=== PATIENT | female | born 1955 | race Caucasian/White ===

== ENCOUNTER → 2016-06-01 | Outpatient (CLI) | payer OTHER ==
[~2016-06-01] MED LIST: CALCIUM 500 + D1 TA1 PO; FLAGYL500 MG PO; LAC PO; LEVAQUIN500 MG PO; LISINOPRIL AND1 TA2 PO; NORCO1 TA1 PO; ZOF4 PO
[2016-06-01 13:25] LABS: BASOPHIL % 0.4 % (0-2); PLATELET COUNT 239 x10^3mcL (130-400); RED CELL DISTRIBUTION WIDTH 13.4 % (11.5-14.5)
[2016-06-01 13:36] LABS: ALBUMIN 3.9 g/dL (3.4-5.0); ALKALINE PHOSPHATASE 76 U/L (46-116); ALT/SGPT 22 U/L (14-59); AST/SGOT 20 U/L (15-37); BILIRUBIN TOTAL 0.4 mg/dL (0.20-1.00); CALCIUM 9.3 mg/dL (8.5-10.1); CARBON DIOXIDE 28.5 mmol/L (21-32); CHLORIDE SERUM 103 mmol/L (98-107); CREATININE SERUM 0.8 mg/dL (0.6-1.0); GFR1 > 60 mL/min; GLUCOSE SERUM 98 mg/dL (74-106); POTASSIUM SERUM 3.6 mmol/L (3.5-5.1); SODIUM SERUM 140 mmol/L (136-145); TOTAL PROTEIN, SERUM 7.5 g/dL (6.4-8.2)
[2016-06-01 13:38] LABS: FREE T4 0.74 ng/dL (0.76-1.46); FREE THYROXINE INDEX 2.8 ug/dL (1.4-4.5); T4(THYROXINE) 8.2 ug/dL (4.7-13.3)
[2016-06-01 13:41] LABS: CHOLESTEROL 278 mg/dL (<200); HDL CHOLESTEROL 92 mg/dL (40-60); TRIGLYCERIDES 257 mg/dL (<150)
[2016-06-02 10:35] LABS: T3 TOTAL 1.3 ng/mL
== END | disposition home or self-care (01) ==
LOC: LB 12:45
PROVIDERS: Family Medicine
DX: R53.83 Other fatigue (principal)
CPT/HCPCS: 84439

== ENCOUNTER → 2016-06-17 | Outpatient (CLI) | payer OTHER | END | disposition home or self-care (01) | LOC: MI 09:43 | PROC: BP38ZZZ Magnetic Resonance Imaging (MRI) of Right Shoulder (ICD-10-PCS; principal; 2016-06-17) | DX: M25.511 Pain in right shoulder (principal) ==

== ENCOUNTER → 2016-07-13 | Outpatient (CLI) | payer OTHER | END | disposition home or self-care (01) | LOC: RD 15:39 | DX: M25.552 Pain in left hip (principal) ==

== ENCOUNTER 2016-08-08 10:47 | Inpatient (IN) | payer OTHER ==
[~2016-08-08] VITALS: Ht 152.4 cm; Wt 54.0 kg
[2016-08-08 11:28] LABS: PLATELET COUNT 316 x10^3mcL (130-400); RED CELL DISTRIBUTION WIDTH 13.1 % (11.5-14.5)
[2016-08-08 11:41] LABS: CALCIUM 9.4 mg/dL (8.5-10.1); CARBON DIOXIDE 22.7 mmol/L (21-32); POTASSIUM SERUM 3.9 mmol/L (3.5-5.1)
[2016-08-08 11:46] LABS: ALBUMIN 3.6 g/dL (3.4-5.0); BILIRUBIN TOTAL 0.7 mg/dL (0.20-1.00); TOTAL PROTEIN, SERUM 7.3 g/dL (6.4-8.2)
[2016-08-08 12:07] LABS: BAND NEUTROPHIL 2 % (0-10); BASOPHIL 0 % (0-2); MONOCYTE 5 % (0-7); SEGMENTED NEUTROPHILS 84 % (37-75)
[2016-08-08 12:19] LABS: UA SPECIFIC GRAVITY 1.025 (1.005-1.035); microscopic required? YES; urine erythrocyte 3+ (NEGATIVE)
[2016-08-08] MEDS ORDERED: DICLOFENAC SODI50 MG PO (15:34)
[2016-08-08 15:54] LABS: MAGNESIUM 1.6 mg/dL (1.8-2.4); PHOSPHOROUS 2.2 mg/dL (2.5-4.9)
[2016-08-08 15:55] LABS: CHOLESTEROL/HDL RATIO 2.6
[2016-08-08 16:02] LABS: FREE T4 1.21 ng/dL (0.76-1.46); FREE THYROXINE INDEX 3.2 ug/dL (1.4-4.5); T3 TOTAL 1.1 ng/mL; T4(THYROXINE) 9.2 ug/dL (4.7-13.3)
[2016-08-08 16:24] VITALS: BP 131/81
[2016-08-08 18:03] VITALS: BP 137/81
[2016-08-08 21:02] VITALS: BP 134/77
[2016-08-08 23:30] VITALS: BP 121/67
[2016-08-09 05:15] VITALS: BP 101/59
[2016-08-09 06:22] LABS: BASOPHIL % 0.3 % (0-2); PLATELET COUNT 241 x10^3mcL (130-400); RED CELL DISTRIBUTION WIDTH 13.3 % (11.5-14.5)
[2016-08-09 06:26] LABS: CALCIUM 7.9 mg/dL (8.5-10.1); CARBON DIOXIDE 26.9 mmol/L (21-32); CHLORIDE SERUM 105 mmol/L (98-107); CREATININE SERUM 0.8 mg/dL (0.6-1.0); GFR1 > 60 mL/min; GLUCOSE SERUM 124 mg/dL (74-106); MAGNESIUM 2.1 mg/dL (1.8-2.4); PHOSPHOROUS 2.5 mg/dL (2.5-4.9); POTASSIUM SERUM 3.5 mmol/L (3.5-5.1); SODIUM SERUM 139 mmol/L (136-145)
[2016-08-09 09:02] VITALS: BP 123/76
[2016-08-09 12:20] VITALS: BP 144/71
[2016-08-09 17:18] VITALS: BP 125/72
[2016-08-09 21:49] VITALS: BP 135/43
[2016-08-09 23:20] VITALS: BP 122/67
[2016-08-10 05:20] VITALS: BP 112/62
[2016-08-10 06:30] LABS: BASOPHIL % 0.7 % (0-2); PLATELET COUNT 235 x10^3mcL (130-400); RED CELL DISTRIBUTION WIDTH 13.3 % (11.5-14.5)
[2016-08-10 07:11] LABS: CALCIUM 7.9 mg/dL (8.5-10.1); CARBON DIOXIDE 27.8 mmol/L (21-32); CHLORIDE SERUM 107 mmol/L (98-107); CREATININE SERUM 0.7 mg/dL (0.6-1.0); GFR1 > 60 mL/min; GLUCOSE SERUM 111 mg/dL (74-106); MAGNESIUM 1.8 mg/dL (1.8-2.4); PHOSPHOROUS 3.2 mg/dL (2.5-4.9); POTASSIUM SERUM 3.6 mmol/L (3.5-5.1); SODIUM SERUM 140 mmol/L (136-145)
[2016-08-10 09:48] VITALS: BP 12/79; BP 128/79
[2016-08-10] MEDS ORDERED: COLACE100 MG PO (10:15)
[2016-08-10] MEDS ORDERED: LAC PO ×2 (10:27→10:47)
[2016-08-10] MEDS ORDERED: AUGMENTIN 875-1 EACH PO (10:32)
[2016-08-10] MEDS ORDERED: TYLENOL WITH CO1 TA2 PO (10:32)
[2016-08-10] MEDS ORDERED: ZOFRAN8 MG PO (11:06)
[2016-08-10 13:12] VITALS: BP 128/79
[2016-08-10] MEDS ORDERED: HCTZ/LISINOPRIL1 TA1 PO (13:37)
[2016-08-10 14:09] VITALS: BP 134/73
== END 2016-08-10 14:35 | disposition home or self-care (01) | DRG 391 ==
LOC: ED 10:47 → DU 15:08
PROVIDERS: Emergency Medicine; ADMIT Family Medicine
DX: K57.32 Diverticulitis of large intestine without perforation or abscess without bleeding (principal); N17.0 Acute kidney failure with tubular necrosis; E86.0 Dehydration; K76.89 Other specified diseases of liver; R31.9 Hematuria, unspecified; N83.202 Unspecified ovarian cyst, left side; E78.5 Hyperlipidemia, unspecified; Z68.23 Body mass index [BMI] 23.0-23.9, adult; I10 Essential (primary) hypertension; R73.03 Prediabetes; Z82.49 Family history of ischemic heart disease and other diseases of the circulatory system; Z87.891 Personal history of nicotine dependence
CPT/HCPCS: 83880; 84439; 87046; 87046-59; J0696; J1170; J1885; J1956; J2270; J2405; J3475; J3490; J7030; Q0092

== ENCOUNTER → 2016-09-29 | Outpatient (CLI) | payer OTHER ==
[~2016-09-29] MED LIST changes: +AUGMENTIN 875-1 EACH PO; +COLACE100 MG PO; +DICLOFENAC SODI50 MG PO; +HCTZ/LISINOPRIL1 TA1 PO; +TYLENOL WITH CO1 TA2 PO; +ZOFRAN8 MG PO
== END | disposition home or self-care (01) ==
LOC: CT 11:52
PROC: BQ2SZZZ Computerized Tomography (CT Scan) of Left Lower Extremity (ICD-10-PCS; principal; 2016-09-29)
PROC: BQ21ZZZ Computerized Tomography (CT Scan) of Left Hip (ICD-10-PCS; 2016-09-29)
DX: M79.605 Pain in left leg (principal)

== ENCOUNTER → 2016-12-08 | Outpatient (CLI) | payer OTHER | END | disposition home or self-care (01) | LOC: RD 10:20 | PROC: BH4CZZZ Ultrasonography of Head and Neck (ICD-10-PCS; principal; 2016-12-08) | DX: M89.9 Disorder of bone, unspecified (principal) ==

== ENCOUNTER 2017-04-02 11:10 | Emergency (ER) | payer OTHER ==
[~2017-04-02] VITALS: Ht 152.4 cm; Wt 51.2 kg
[2017-04-02 11:17] VITALS: Ht 152.4 cm; Wt 51.2 kg
[2017-04-02 12:07] LABS: BASOPHIL % 0.1 % (0-2); PLATELET COUNT 260 x10^3mcL (130-400); RED CELL DISTRIBUTION WIDTH 13.2 % (11.5-14.5)
[2017-04-02 12:16] LABS: CALCIUM 9.4 mg/dL (8.5-10.1); CARBON DIOXIDE 25.5 mmol/L (21-32); CREATININE SERUM 1.2 mg/dL (0.6-1.0); POTASSIUM SERUM 3.3 mmol/L (3.5-5.1)
[2017-04-02 12:21] LABS: ALBUMIN 3.9 g/dL (3.4-5.0); BILIRUBIN TOTAL 0.8 mg/dL (0.20-1.00); TOTAL PROTEIN, SERUM 7.9 g/dL (6.4-8.2)
[2017-04-02 16:00] VITALS: BP 110/60
== END 2017-04-02 16:00 | disposition home or self-care (01) ==
LOC: ED 11:10
PROVIDERS: Emergency Medicine
DX: K57.92 Diverticulitis of intestine, part unspecified, without perforation or abscess without bleeding (principal); I10 Essential (primary) hypertension; Z88.1 Allergy status to other antibiotic agents
CPT/HCPCS: J0696; J0780; J1170; J1885; J2405; J3010; J3490; J7030

== ENCOUNTER → 2017-05-06 | Outpatient (CLI) | payer OTHER | END | disposition home or self-care (01) | LOC: RD 11:11 | DX: M54.5 Low back pain (principal) ==

== ENCOUNTER → 2017-06-22 | Day surgery (SDC) | payer OTHER ==
[~2017-06-22] VITALS: Ht 152.4 cm; Wt 50.8 kg
[2017-06-22 06:23] VITALS: BP 135/81
[2017-06-22 10:49] VITALS: BP 119/68
== END | disposition home or self-care (01) ==
LOC: DS 06:14 → OR 07:30 → DS 07:30
PROVIDERS: Anesthesiology Pain Medicine
PROC: 3E0U33Z Introduction of Anti-inflammatory into Joints, Percutaneous Approach (ICD-10-PCS; 2017-06-22)
PROC: 3E0U3BZ Introduction of Anesthetic Agent into Joints, Percutaneous Approach (ICD-10-PCS; principal; 2017-06-22 07:30)
DX: M16.12 Unilateral primary osteoarthritis, left hip (principal); G89.29 Other chronic pain
CPT/HCPCS: 77003; J2001; J2250; J2704; J3301; J3490; J7040; Q0092

== ENCOUNTER 2017-08-12 11:19 | Emergency (ER) | payer OTHER ==
[~2017-08-12] VITALS: Ht 152.4 cm; Wt 51.2 kg
[2017-08-12 11:20] VITALS: Ht 152.4 cm; Wt 51.2 kg
[2017-08-12 12:18] VITALS: BP 137/76
== END 2017-08-12 12:18 | disposition home or self-care (01) ==
LOC: ED 11:19
DX: M16.12 Unilateral primary osteoarthritis, left hip (principal); M54.16 Radiculopathy, lumbar region; I10 Essential (primary) hypertension
CPT/HCPCS: J1885

== ENCOUNTER 2017-09-16 12:40 | Emergency (ER) | payer OTHER ==
[~2017-09-16] VITALS: Ht 152.4 cm; Wt 52.6 kg
[2017-09-16 12:41] VITALS: Ht 152.4 cm; Wt 52.6 kg
[2017-09-16 13:29] VITALS: BP 132/75
== END 2017-09-16 13:31 | disposition home or self-care (01) ==
LOC: ED 12:40
DX: M54.32 Sciatica, left side (principal); I10 Essential (primary) hypertension; Z87.19 Personal history of other diseases of the digestive system
CPT/HCPCS: J1885

== ENCOUNTER → 2017-09-20 | Outpatient (CLI) | payer OTHER | END | disposition home or self-care (01) | LOC: MI 10:12 | PROC: BR39ZZZ Magnetic Resonance Imaging (MRI) of Lumbar Spine (ICD-10-PCS; principal; 2017-09-20) | DX: M62.830 Muscle spasm of back (principal); M79.605 Pain in left leg ==

== ENCOUNTER 2018-03-13 11:55 | Emergency (ER) | payer OTHER ==
[~2018-03-13] VITALS: Ht 152.4 cm; Wt 49.9 kg
[2018-03-13 12:06] VITALS: BP 118/92; Ht 152.4 cm; Wt 49.9 kg
== END 2018-03-13 12:42 | disposition home or self-care (01) ==
LOC: ED 11:55
DX: M16.12 Unilateral primary osteoarthritis, left hip (principal); M54.42 Lumbago with sciatica, left side; Z88.8 Allergy status to other drugs, medicaments and biological substances; Z98.890 Other specified postprocedural states; Z88.1 Allergy status to other antibiotic agents
CPT/HCPCS: J1885

== ENCOUNTER 2018-03-18 09:34 | Emergency (ER) | payer OTHER ==
[~2018-03-18] VITALS: Ht 152.4 cm; Wt 49.9 kg
[2018-03-18 09:41] VITALS: Ht 152.4 cm; Wt 49.9 kg
[2018-03-18 10:08] LABS: CALCIUM 9.9 mg/dL (8.5-10.1); CARBON DIOXIDE 28.4 mmol/L (21-32); CREATININE SERUM 1.1 mg/dL (0.6-1.0); POTASSIUM SERUM 3.7 mmol/L (3.5-5.1)
[2018-03-18 10:12] LABS: ALBUMIN 3.8 g/dL (3.4-5.0); BILIRUBIN TOTAL 0.58 mg/dL (0.20-1.00); TOTAL PROTEIN, SERUM 8.1 g/dL (6.4-8.2)
[2018-03-18 10:28] LABS: BASOPHIL % 0.5 % (0-2); PLATELET COUNT 338 x10^3mcL (130-400)
[2018-03-18 10:57] LABS: RED CELL DISTRIBUTION WIDTH 15.2 % (11.5-14.5)
[2018-03-18 14:56] VITALS: BP 112/65
== END 2018-03-18 14:56 | disposition home or self-care (01) ==
LOC: ED 09:34
PROVIDERS: Emergency Medicine
DX: K29.00 Acute gastritis without bleeding (principal); I10 Essential (primary) hypertension; M54.30 Sciatica, unspecified side; M16.12 Unilateral primary osteoarthritis, left hip; Z88.1 Allergy status to other antibiotic agents; Z88.8 Allergy status to other drugs, medicaments and biological substances; Z98.890 Other specified postprocedural states
CPT/HCPCS: J2060; J2270; J2405; J3490; J7030

== ENCOUNTER → 2018-04-18 | Outpatient (CLI) | payer OTHER | END | disposition home or self-care (01) | LOC: RD 14:13 | DX: M25.552 Pain in left hip (principal) ==

== ENCOUNTER 2018-05-03 05:51 | Day surgery (SDC) | payer OTHER | END 2018-05-03 09:30 | LOC: DS 05:51 → OR 07:30 → DS 09:30 ==

== ENCOUNTER 2018-05-05 13:15 | Emergency (ER) | payer OTHER ==
[~2018-05-05] VITALS: Ht 152.4 cm; Wt 49.9 kg
[2018-05-05 13:21] VITALS: Ht 152.4 cm; Wt 49.9 kg
[2018-05-05 14:44] LABS: BASOPHIL % 0.2 % (0-2); PLATELET COUNT 352 x10^3mcL (130-400)
[2018-05-05 14:59] LABS: CALCIUM 8.7 mg/dL (8.5-10.1); CARBON DIOXIDE 29.6 mmol/L (21-32); POTASSIUM SERUM 3.5 mmol/L (3.5-5.1)
[2018-05-05 15:03] LABS: BILIRUBIN TOTAL 0.31 mg/dL (0.20-1.00); TOTAL PROTEIN, SERUM 7.5 g/dL (6.4-8.2)
[2018-05-05 15:07] LABS: ALBUMIN 3.1 g/dL (3.4-5.0)
[2018-05-05 17:24] LABS: microscopic required? YES; urine erythrocyte 2+ (NEGATIVE)
[2018-05-05 18:35] VITALS: BP 123/95
== END 2018-05-05 18:35 | disposition home or self-care (01) ==
LOC: ED 13:15
PROVIDERS: Emergency Medicine
DX: K57.32 Diverticulitis of large intestine without perforation or abscess without bleeding (principal); R94.31 Abnormal electrocardiogram [ECG] [EKG]; R11.0 Nausea; M54.16 Radiculopathy, lumbar region; M19.90 Unspecified osteoarthritis, unspecified site; Z98.890 Other specified postprocedural states; Z98.86 Personal history of breast implant removal; Z88.1 Allergy status to other antibiotic agents
CPT/HCPCS: J1885; J2060; J2405; J2765; J3010; J3490; J7030; Q9967

== ENCOUNTER 2018-05-09 12:57 | Emergency (ER) | payer OTHER ==
[~2018-05-09] VITALS: Ht 152.4 cm; Wt 49.9 kg
[2018-05-09 12:59] VITALS: Ht 152.4 cm; Wt 49.9 kg
[2018-05-09 14:16] LABS: BASOPHIL % 0.2 % (0-2)
[2018-05-09 15:40] LABS: UA SPECIFIC GRAVITY <=1.005 (1.005-1.035)
[2018-05-09 15:41] LABS: microscopic required? YES; urine erythrocyte 2+ (NEGATIVE)
[2018-05-09 15:44] LABS: CALCIUM 8.6 mg/dL (8.5-10.1); CARBON DIOXIDE 29.2 mmol/L (21-32); CREATININE SERUM 1.5 mg/dL (0.6-1.0); POTASSIUM SERUM 3.9 mmol/L (3.5-5.1)
[2018-05-09 15:52] LABS: ALBUMIN 3.3 g/dL (3.4-5.0); BILIRUBIN TOTAL 0.42 mg/dL (0.20-1.00); CHOLESTEROL/HDL RATIO 3.9; TOTAL PROTEIN, SERUM 7.4 g/dL (6.4-8.2)
[2018-05-09 15:58] LABS: FREE T4 1.09 ng/dL (0.76-1.46); FREE THYROXINE INDEX 3.5 ug/dL (1.4-4.5); T4(THYROXINE) 9.2 ug/dL (4.7-13.3)
[2018-05-09 16:09] LABS: T3 TOTAL 0.9 ng/mL
[2018-05-09 17:01] LABS: PLATELET COUNT 374 x10^3mcL (130-400)
[2018-05-09 18:08] VITALS: BP 145/79
== END 2018-05-09 18:08 | disposition home or self-care (01) ==
LOC: ED 12:57
PROVIDERS: Specialist
DX: E86.0 Dehydration (principal); R53.1 Weakness; Z98.890 Other specified postprocedural states; Z98.82 Breast implant status; I10 Essential (primary) hypertension; Z88.1 Allergy status to other antibiotic agents; Z88.8 Allergy status to other drugs, medicaments and biological substances
CPT/HCPCS: 84439; J2405; J3490; J7030

== ENCOUNTER → 2018-05-23 | Outpatient (CLI) | payer OTHER ==
[2018-05-23 11:36] LABS: UA SPECIFIC GRAVITY 1.025 (1.005-1.035); microscopic required? YES; urine erythrocyte 3+ (NEGATIVE)
[2018-05-23 11:48] LABS: BASOPHIL % 0.4 % (0-2); PLATELET COUNT 257 x10^3mcL (130-400); RED CELL DISTRIBUTION WIDTH 13.1 % (11.5-14.5)
[2018-05-23 11:55] LABS: ALBUMIN 3.4 g/dL (3.4-5.0); ALKALINE PHOSPHATASE 86 U/L (46-116); ALT/SGPT 25 U/L (14-59); AST/SGOT 21 U/L (15-37); BILIRUBIN TOTAL 0.28 mg/dL (0.20-1.00); CALCIUM 8.9 mg/dL (8.5-10.1); CARBON DIOXIDE 27.1 mmol/L (21-32); CHLORIDE SERUM 104 mmol/L (98-107); CHOLESTEROL 200 mg/dL (<200); CREATININE SERUM 0.8 mg/dL (0.6-1.0); FREE T4 0.88 ng/dL (0.76-1.46); GFR1 > 60 mL/min; GLUCOSE SERUM 111 mg/dL (74-106); MAGNESIUM 1.9 mg/dL (1.8-2.4); POTASSIUM SERUM 3.7 mmol/L (3.5-5.1); SODIUM SERUM 139 mmol/L (136-145)
[2018-05-23 11:56] LABS: CHOLESTEROL/HDL RATIO 2.7; HDL CHOLESTEROL 75 mg/dL (40-60); TRIGLYCERIDES 226 mg/dL (<150)
== END | disposition home or self-care (01) ==
LOC: LB 11:15
PROVIDERS: Family Medicine
DX: R63.0 Anorexia (principal)
CPT/HCPCS: 84439

== ENCOUNTER → 2018-05-31 | Day surgery (SDC) | payer OTHER ==
[2018-05-30 13:19] LABS: BASOPHIL % 0.3 % (0-2); PLATELET COUNT 209 x10^3mcL (130-400)
[2018-05-30 13:59] LABS: CALCIUM 9.1 mg/dL (8.5-10.1); CARBON DIOXIDE 26.7 mmol/L (21-32); CHLORIDE SERUM 103 mmol/L (98-107); CREATININE SERUM 0.7 mg/dL (0.6-1.0); GFR1 > 60 mL/min; GLUCOSE SERUM 118 mg/dL (74-106); POTASSIUM SERUM 3.3 mmol/L (3.5-5.1); SODIUM SERUM 141 mmol/L (136-145)
[~2018-05-31] VITALS: Ht 152.4 cm; Wt 50.8 kg
[2018-05-31 06:24] VITALS: BP 122/78
[2018-05-31 11:15] VITALS: BP 128/78
== END | disposition home or self-care (01) ==
LOC: DS 06:00 → OR 07:30
PROVIDERS: Anesthesiology Pain Medicine
PROC: 3E0U3BZ Introduction of Anesthetic Agent into Joints, Percutaneous Approach (ICD-10-PCS; 2018-05-31)
PROC: 3E0U33Z Introduction of Anti-inflammatory into Joints, Percutaneous Approach (ICD-10-PCS; principal; 2018-05-31 07:30)
DX: M46.1 Sacroiliitis, not elsewhere classified (principal); M51.17 Intervertebral disc disorders with radiculopathy, lumbosacral region; G89.4 Chronic pain syndrome; M16.12 Unilateral primary osteoarthritis, left hip; I10 Essential (primary) hypertension; Z68.21 Body mass index [BMI] 21.0-21.9, adult
CPT/HCPCS: 77003; J2001; J2250; J2405; J2704; J3010; J3490; J7040; Q9967

== ENCOUNTER → 2018-07-06 | Outpatient (CLI) | payer OTHER ==
[2018-07-06 11:17] LABS: ALBUMIN 3.4 g/dL (3.4-5.0); ALKALINE PHOSPHATASE 92 U/L (46-116); ALT/SGPT 17 U/L (14-59); AST/SGOT 15 U/L (15-37); CALCIUM 9.6 mg/dL (8.5-10.1); CHLORIDE SERUM 105 mmol/L (98-107); CREATININE SERUM 0.7 mg/dL (0.6-1.0); GFR1 > 60 mL/min; GLUCOSE SERUM 111 mg/dL (74-106); POTASSIUM SERUM 3.8 mmol/L (3.5-5.1); SODIUM SERUM 141 mmol/L (136-145); TOTAL PROTEIN, SERUM 7.2 g/dL (6.4-8.2)
[2018-07-06 11:20] LABS: BASOPHIL % 0.6 % (0-2); PLATELET COUNT 270 x10^3mcL (130-400)
[2018-07-06 11:34] LABS: RED CELL DISTRIBUTION WIDTH 15.3 % (11.5-14.5)
[2018-07-06 14:06] LABS: UA SPECIFIC GRAVITY 1.015 (1.005-1.035); microscopic required? YES; urine erythrocyte 2+ (NEGATIVE)
== END | disposition home or self-care (01) ==
LOC: RD 09:49
DX: Z01.818 Encounter for other preprocedural examination (principal)

== ENCOUNTER 2018-08-08 10:46 | Inpatient (IN) | payer OTHER ==
[~2018-08-08] VITALS: Ht 157.5 cm; Wt 49.9 kg
[2018-08-08 12:53] LABS: ALBUMIN 3.9 g/dL (3.4-5.0); ALKALINE PHOSPHATASE 93 U/L (46-116); ALT/SGPT 19 U/L (14-59); AST/SGOT 14 U/L (15-37); BILIRUBIN TOTAL 0.45 mg/dL (0.20-1.00); CALCIUM 9.6 mg/dL (8.5-10.1); CARBON DIOXIDE 29.1 mmol/L (21-32); CHLORIDE SERUM 101 mmol/L (98-107); CREATININE SERUM 0.8 mg/dL (0.6-1.0); GFR1 > 60 mL/min; GLUCOSE SERUM 102 mg/dL (74-106); POTASSIUM SERUM 3.5 mmol/L (3.5-5.1); SODIUM SERUM 136 mmol/L (136-145); TOTAL PROTEIN, SERUM 7.9 g/dL (6.4-8.2)
[2018-08-08 13:11] LABS: BASOPHIL % 0.3 % (0-2); PLATELET COUNT 248 x10^3mcL (130-400)
[2018-08-08 13:11] LABS: microscopic required? YES; urine erythrocyte 3+ (NEGATIVE)
[2018-08-08 13:12] LABS: RED CELL DISTRIBUTION WIDTH 15.1 % (11.5-14.5)
[2018-08-21 12:14] LABS: ALBUMIN 3.8 g/dL (3.4-5.0); ALKALINE PHOSPHATASE 89 U/L (46-116); ALT/SGPT 26 U/L (14-59); AST/SGOT 18 U/L (15-37); BILIRUBIN TOTAL 0.3 mg/dL (0.20-1.00); CALCIUM 9.4 mg/dL (8.5-10.1); CARBON DIOXIDE 31.3 mmol/L (21-32); CHLORIDE SERUM 102 mmol/L (98-107); CREATININE SERUM 0.8 mg/dL (0.6-1.0); GFR1 > 60 mL/min; GLUCOSE SERUM 105 mg/dL (74-106); POTASSIUM SERUM 3.7 mmol/L (3.5-5.1); SODIUM SERUM 139 mmol/L (136-145); TOTAL PROTEIN, SERUM 7.6 g/dL (6.4-8.2)
[2018-08-21 12:36] LABS: BASOPHIL % 0.3 % (0-2); PLATELET COUNT 277 x10^3mcL (130-400)
[2018-08-21 12:37] LABS: RED CELL DISTRIBUTION WIDTH 14.6 % (11.5-14.5)
--- NOTE | 2018-08-21 14:30 | NUR ---
PRINTED LAB RESULTS FOR SURGERY 08-22-18. NOTED PT WAS SEEN IN ER 08-16-18 FOR INJURY LEFT THIRD FINGER. XRAY REPORTS "NO ACUTE FRACTURES ARE DEMONSTRATED. THERE DOES APPEAR TO BE MILD HYPEREXTENSION NOTED AT THE PROXIMAL INTERPHALANGEAL JOINT". ER DR LUNSFORD TO ALERT ORTHO SURGEON TO SEE IF THIS MIGHT IMPACT HER SURGERY ON 08-22-18. CALL TO PT. STATES "TOOK SPLINT OFF AND WILL FOLLOWUP WITH PCP IF HAS ANY PROBLEMS." YAZAN IN OR NOTIFIED REGARDING PT STATUS AND TO ALERT DR MAN OF INJURY.
--- NOTE | 2018-08-21 15:12 | NUR ---
YAZAN REPORTED PT ER VISIT AND FINDINGS TO DR MAN. TO PROBLEM WITH UPCOMING SURGERY. PT NOTIFIED.
[2018-08-22 06:32] VITALS: BP 127/82
[2018-08-22 06:42] VITALS: BP 127/82
[2018-08-22] MEDS ORDERED: HCTZ/LISINOPRIL1 TA1 PO (07:39)
[2018-08-22] MEDS ORDERED: ATIVAN1 MG PO (07:40)
[2018-08-22] MEDS ORDERED: TYLENOL WITH CO1 TA3 PO (07:40)
[2018-08-22 13:35] VITALS: BP 118/55
--- NOTE | 2018-08-22 13:38 | NUR ---
RECEIVED PT FROM OR VIA [facility]. ORIENTED PT TO ROOM AND SURROUNDINGS. IV NOTED TO RFA PATENT AND INTACT. ENDORSED PT TO PRIMARY NURSE KAYDEN
--- NOTE | 2018-08-22 15:48 | NUR ---
PT OOB WITH PHYSICAL THERAPY, ASSISTED TO BSC, TOLERATED ACTIVITY WELL. VOID X1. PT COMPLAINT OF PAIN TO LLE, RATES 9/10, WORSE WITH MOVEMENT. GIVEN IV PAIN MED, SEE MAR. PT NOW SITTING IN CHAIR AT BEDSIDE, PT TALKING TO PATIENT ABOUT HIP PRECAUTIONS, PT AND FAMILY QUESTIONS CONCERNED DISCUSSED. NO SOB ON ROOM AT THIS TIME. IV WNL TO RFA, NO REDNESS, NO SWELLING, NO INFILTRATION. PATENT AND FLUSHES WELL. WILL CONTINUE TO MONITOR.
[2018-08-22 16:36] VITALS: BP 105/53
--- NOTE | 2018-08-22 18:00 | NUR ---
ASSISTED PT TO BSC, LEFT HIP PRECAUTIONS IN PLACE, TOLERATED ACTIVITY WELL. VOID X1, URINE CLEAR/YELLOW. NO S/S OF ACUTE DISTRESS. NO SOB ON ROOM AIR. NO CHEST PAIN. DRESSING TO LLE CDI. IV WNL TO RFA, NO REDNESS, NO SWELLING, NO INFILTRATION. PATENT AND FLUSHES WELL. IV FLUIDS FLOWING. BED IN LOW POSITION. CALL LIGHT WITHIN REACH. FALL PRECAUTIONS IN PLACE. WILL CONTINUE TO MONITOR.
--- NOTE | 2018-08-22 19:39 | NUR ---
RECEIVED PT FROM PREVIOUS SHIFT. PT A/OX4. DENIES SOB ON RA. IV TO RFA BLEEDING/LEAKING. INFUSION HELD. FAMILY AT BEDSIDE. DRESSING TO L HIP CDI. CALL LIGHT WITHIN REACH, BED IN LOW POSITION. WILL CONTINUE TO MONITOR.
--- NOTE | 2018-08-22 21:21 | NUR ---
ATIVAN GIVEN IVP PER EMAR. IV PATENT, FLUSHING WELL. WILL CONTINUE TO MONITOR.
[2018-08-22 21:40] VITALS: BP 123/69
--- NOTE | 2018-08-22 22:21 | NUR ---
NEW IV PLACED TO JESSICA. DILAUDID GIVEN IVP PER EMAR. PT IS TEARFUL, C/O ANXIETY. STATES SHE TAKES ATIVAN AT HOME PRN FOR ANXIETY. DR MAN PAGED AT THIS TIME. WILL CONTINUE TO MONITOR.
--- NOTE | 2018-08-22 23:31 | NUR ---
PT ASSISTED TO BEDSIDE COMMODE AND BACK TO BED. ABDUCTOR PILLOW IN PLACE. PT C/O PAIN TO L HIP 11/23. DILAUDID GIVEN IVP. BP 123/65. IV PATENT AND INFUSING WELL. PT MADE COMFORTABLE. CALL LIGHT WITHIN REACH, BED IN LOW POSITION. WILL CONTINUE TO MONITOR.
--- NOTE | 2018-08-23 01:19 | NUR ---
PT RESTING IN NO ACUTE DISTRESS. RR EVEN AND UNLABORED. CALL LIGHT WITHIN REACH, BED IN LOW POSITION. WILL CONTINUE TO MONITOR.
[2018-08-23 05:56] VITALS: BP 129/57
[2018-08-23 07:00] LABS: CALCIUM 8.2 mg/dL (8.5-10.1); CARBON DIOXIDE 30.4 mmol/L (21-32); CHLORIDE SERUM 102 mmol/L (98-107); CREATININE SERUM 0.8 mg/dL (0.6-1.0); GFR1 > 60 mL/min; GLUCOSE SERUM 126 mg/dL (74-106); POTASSIUM SERUM 3.6 mmol/L (3.5-5.1); SODIUM SERUM 139 mmol/L (136-145)
[2018-08-23 07:26] LABS: BASOPHIL % 0.3 % (0-2); PLATELET COUNT 204 x10^3mcL (130-400); RED CELL DISTRIBUTION WIDTH 14.4 % (11.5-14.5)
--- NOTE | 2018-08-23 07:30 | NUR ---
RC'D PT RESTING IN BED C/O OF LEFT HIP PAIN. PT MEDICATION NOTED DUE AT THIS TIME, WILL MEDICATE PER EMAR. A/A/O/X4, SPEECH CLEAR AND APPROPRIATE. DENIES MARTINEZ/DIZZINESS. MEDSURG. DENIES CHEST PAIN/PRESSURE. PALP PULSES, NO EDEMA NOTED. RESPIRATIONS EQUAL AND UNLABROED. LUNGS CTA. ON RA, DENIES SOB. ABDOMEN SOFT AND NONTEDNER. ACTIVE BS. DENIES N/V AT THIS TIME. VOIDS FREELY, DENIES BURNING. LIMITED ROM TO LEFT HIP, DRESSING IN PLACE CDI. PT AMBULATES WITH ASSISTANCE. PT ABLE TO REPOSITION SELF IN BED. ECCYMOSIS NOTED TO RFA, PICK REMOVER. IV PATENT AND INTACT. BED IN LOW POSITION. CALL LIGHT IN REACH. WILL CONTINUE TO MONITOR
--- NOTE | 2018-08-23 08:12 | NUR ---
AM MEDICATIONS GIVEN. PT TOLERATED WELL. PT C/O OF PAIN 10/10 TO LEFT HIP, MEDICATED PER EMAR. RESPIRATIONS EQUAL AND UNLABORED. ON RA, DENIES SOB. DR. MAN AT BEDSIDE DISCUSSING POC WITH PT. PT VERBALIZED UNDERSTANDNING. BED IN LOW POSITION. CALL LIGHT IN REACH. WILL CONTINUE TO MONITOR
[2018-08-23 08:37] VITALS: BP 131/49
--- NOTE | 2018-08-23 12:30 | NUR ---
STILL C/O OF LT LEG PAIN AND INSPITE DILAUDID 1MG IV WAS GIVEN. CALLED TO AND MADE AWARE AND HE CHANGE THE FREQUENCY OF DILAUDID TO Q3HRS FROM Q4HRS AND ADDED PERCOCET 5/325 2TABS.Q6HRS.
[2018-08-23 12:44] VITALS: BP 112/58
--- NOTE | 2018-08-23 13:00 | NUR ---
REPORT GIVEN TO GABBI ALONZO FOR CONTINUED CARE.
--- NOTE | 2018-08-23 13:15 | NUR ---
RECEIVED PATIENT FOR CONTINUE CARE. PATIENT A/A/OX4; CLEAR SPEECH. NO RESP DISTRESS ON RA. IVF OF NS 80CC/HR. IV SITE TO RUE INTACT. NO S/S OF INFILTRATION. LT HIP INCISION COCRED WITH SURGICAL DRSG, DRY/INTACT. ABLE TO USE BSC W/ ASSIST. C/O L HIP PAIN ON 11/23 WHEN ON MOVEMENT. DILAUDID 1MG IVP GIVEN AT 1151 AND PERCOCET 10/325 PO GIVEN AR 1243. CONTINUE MONITOR. CALL LIGT IN REACH.
--- NOTE | 2018-08-23 15:40 | NUR ---
PATIENT WALKED WITH PHYSICAL THERAPIST. HAD SHORT TERM OF NAP. C/O L HIP INCISIONAL PAIN ON 08/23; DILAUDID 1MG IVP GIVEN. CONTINUE MONITOR.
[2018-08-23 16:54] VITALS: BP 96/45
--- NOTE | 2018-08-23 18:25 | NUR ---
L HIP INCISIONAL PAIN 7/10; PERCOCET 10/325 PO GIVEN. PATIENT C/O ANXIETY. ATIVAN 1MG PO GIVEN. HAD VOID X4 VIA BSC OR BRP W/ ASSISTANCE. NO BM THIS SHIFT. PILLOW BETWEEN LEGS. IVF OF NS 80CC/HR. ENDORSED CARE TO NOC NURSE.
--- NOTE | 2018-08-23 19:10 | NUR ---
RECIEVED PATIENT AT START OF SHIFT ASLEEP, SNORING, EYES CLOSED, BREATHS EVEN. IV INFUSING WITHOUT ERYTHEMA OR INFILTRATION TO JESSICA. PILLOW IN PLACE BETWEEN PATIENTS LEGS. HOB AT 30 DEGREES. SCDS AT BEDSIDE. BED LOCKED AND IN LOWEST POSIITON. CALL LIGHT AND BEDSIDE TABLE WITHIN REACH.
--- NOTE | 2018-08-23 20:00 | NUR ---
PATIENT IS AWAKE AND WAS ASSISTED TO USE BEDSIDE COMMODE. HIP REPLACEMENT PRECAUTIONS MAINTAINED. PATIENT BACK IN BED WITH ABDUCTOR PILLOW IN PLACE BETWEEN LEGS. PATIENT REPORTING 10/10 PAIN. WILL MEDICATE PER EMAR.
--- NOTE | 2018-08-23 20:30 | NUR ---
PATIENT GIVEN DILAUDID PER EMAR FOR 10/10 PAIN. PATIENT REFUSED CELEBREX BECAUSE SHE SAID IT UPSETS HER STOMACH.
[2018-08-23 21:16] VITALS: BP 109/50
--- NOTE | 2018-08-23 23:45 | NUR ---
PATIENT GIVEN DIALUDID PER EMAR FOR 8/10 PAIN TO HER LEFT HIP. BP WNL.
--- NOTE | 2018-08-24 03:50 | NUR ---
PATIENT GIVEN DILAUDID PER EMAR FOR 8/10 PAIN TO LEFT HIP.
--- NOTE | 2018-08-24 06:10 | NUR ---
PATIENT GIVEN ATIVAN PER EMAR DUE TO ANXIETY THIS MORNING RELATED TO PAIN. PAIN MEDICATION DUE 0650. WILL MEDICATE WHEN DUE.
[2018-08-24 06:36] VITALS: BP 105/53
--- NOTE | 2018-08-24 06:53 | NUR ---
PATIENT GIVEN DILAUDID PER EMAR FOR REPORT OF 10/10 PAIN TO LEFT HIP. IV INFUSING WITH OUT ERYTHEMA OR INFILTRATION. HIP PRECAUTIONS MAINTAINED THROUGH OUT SHIFT. BED LOCKED AND IN LOWEST POSIITON. CALL LIGHT AND BEDSDIE TABLE WITHIN REACH. WILL ENDORSE CARE TO [facility] NURSE.
[2018-08-24 07:06] LABS: BASOPHIL % 0.3 % (0-2); PLATELET COUNT 189 x10^3mcL (130-400); RED CELL DISTRIBUTION WIDTH 14.4 % (11.5-14.5)
--- NOTE | 2018-08-24 07:10 | NUR ---
RECEIVED PT IN BED, AXOX3, CONFUSED AT TIMES, VERBALY, YI, ABLE TO MAKE NEEDS KNOWN, ANXIETY, PERRLA, NO REDNESS/DRAINAGE, RESP EVEN AND NON-LABORED, IN NO ACUTE RESP DISTRESS, CHEST RISE SYMMETRICALLY, ABD FLAT AND NON-TENDERED TO TOUCH, BS (+) X 4, AMBULATORY WITH ASSIST AND FWW, CONTINENT, (L) HIP REPLACEMENT, DRESSING C/D/I, NO FACIAL DROOP/SLURRED SPEECH AT THIS TIME, DENIEDD N/V/D, REPORT PAIN 09/23 TO SURGICAL SITE, MED GIVEN PRN PER MD ORDER VIA EMAR, TAKEN WELL, AMBULATE WITH PT, TAKEN WELL, PALP PULSES, CAP REFILL < 2 SEC, SKIN D/W/C, ALL NEEDS MET AT THIS TIME, SAFETY PRECAUTION FOLLOWED, CONTINUE TO MONITOR
[2018-08-24 07:30] LABS: CALCIUM 8.6 mg/dL (8.5-10.1); CARBON DIOXIDE 28.5 mmol/L (21-32); CHLORIDE SERUM 105 mmol/L (98-107); CREATININE SERUM 0.6 mg/dL (0.6-1.0); GFR1 > 60 mL/min; GLUCOSE SERUM 105 mg/dL (74-106); POTASSIUM SERUM 3.5 mmol/L (3.5-5.1); SODIUM SERUM 140 mmol/L (136-145)
--- NOTE | 2018-08-24 07:45 | NUR ---
PT BACK TO BED AFTER PT THERAPY , REPORT PAIN 5/10, TOLERABLE AT THIS TIME, DAUGHTER AT BEDSIDE, SAFETY PRECAUTION FOLLOWED, CONTINUE TO MONITOR
[2018-08-24 08:31] VITALS: BP 121/48
--- NOTE | 2018-08-24 09:00 | NUR ---
TALKED TO PT'S DAUGHTER URBAN.EXPRESSES CONCERN ON PT HAVING TOO MUCH PAIN MEDICATION.DOES NOT WANT US TO GIVE DILAUDID IF POSSIBLE.WILL LET THE DOCTOR KNOW.
--- NOTE | 2018-08-24 09:54 | NUR ---
PT REPORTED PAIN TO (L) SURGICAL SITE, 09/23, PAIN MED GIVEN PER MD PRN ORDER VIA EMAR, TAKEN WELL, NO ASE NOTED, FAMILY AT BEDSIDE, ALL NEEDS MET, CONTINUE TO MONITOR
--- NOTE | 2018-08-24 10:42 | NUR ---
PT RESTING IN BED, IN NO ACUTE RESP DISTRESS, PAIN REASSESS, 05/24, TOLERABLE, ALL NEEDS MET, CONTINUE TO MONITOR
--- NOTE | 2018-08-24 11:22 | NUR ---
I HAVE REVIEWED THE DATA COLLECTION BY CHERI LEON (NAME):AMBER HENLEY ENTERED ON (DATE/TIME):08/24/18 @ 1122 I CONCUR WITH THE DATA AND ANY EXCEPTIONS OR COMMENTS ARE LISTED BELOW:
--- NOTE | 2018-08-24 13:23 | NUR ---
PT ASSITED TO RESTROOM, VOID X 1, ASSITED BACK TO BED, REPORTED PAIN TO (L) SITE 09/23, PAIN MED GIVEN PER MD ORDER PRN VIA EMAR, TAKEN WELL, SEEN BY PT, ALL NEEDS MET AT THIS TIME, SAFETY PROTOCOL FOLLOWED, CONTINUE TO MONITOR
--- NOTE | 2018-08-24 15:13 | NUR ---
PT RESTING IN BED, REPORTED PAIN 8/10 AT (L) SURGICAL SITE, MED GIVEN PER MD ORDER FOR PRN VIA EMAR, TAKEN WELL, NO ASE NOTED AT THIS TIME, SAFETY PRECAUTION FOLLOW, CONTINUE TO MONITOR
--- NOTE | 2018-08-24 15:46 | NUR ---
IV TO (R) AC INFILTRATION, IV REMOVED, IV CATH TIP INTACT, INSERTED IV TO LEFT FA, PATENT AND INFUSING WELL, PT IN NO ACUTE DISTRESS, ALL NEEDS AT THIS TIME, CONTINUE TO MONITOR
--- NOTE | 2018-08-24 17:15 | NUR ---
PT SEEN BY DR. MAN, DISCUSS ABOUT D/C HOME PLAN, IN NO ACUTE DISTRESS, CONTINUE TO MONITOR
[2018-08-24 17:21] VITALS: BP 115/40
--- NOTE | 2018-08-24 18:10 | NUR ---
CALLED LEFT A MESSAGE ABOUT PT'S DAUGHTER WANTED TO TALK TO HER.LEFT PT'S DAUGHTER'S PHONE NUMBER FOR TO CALL HE.
--- NOTE | 2018-08-24 18:22 | NUR ---
PT RESTING IN BED, IN NO ACUTE RESP DISTRESS, NO FACIAL DROOP/SLURRED SPEECH NOTED, RESP EVEN AND NON-LABORED, CHEST RISE SYMMETRICALLY, IV PATENT (L) FA, DRESSING C/D/I, ALL NEEDS MET, ALEJANDRO LIGHT IN REACH, BED AT LOW POSITION, RAILS X2, WILL ENDORSE TO ONCOMING RN
[2018-08-24] MEDS ORDERED: APAP/OXYCODONE1 TA4 PO (19:21)
[2018-08-24] MEDS ORDERED: COL100 PO (19:21)
[2018-08-24] MEDS ORDERED: ECO81 PO (19:22)
--- NOTE | 2018-08-24 19:45 | NUR ---
PT A/A/O X4. DENIES DIZZINESS AND HEADACHE. BREATH SOUNDS CLEAR. BREATHING EVEN AND UNLABORED ON ROOM AIR. DENIES CHEST PAIN AND PRESSURE. BOWEL SOUNDS ACTIVE. NO C/O N/V AND ABD PAIN. DRESSING ON THE LEFT LOWER HIP NOTED C/D/I. DENIES PAIN THUS FAR. IV HEPLOCK INTACT ON THE LEFT FOREARM. MADE PT COMFORTABLE. PLACED CALL LIGHT WITH IN REACH. WILL CONTINUE TO MONITOR.
[2018-08-24 20:28] VITALS: BP 111/50
--- NOTE | 2018-08-24 20:57 | NUR ---
PT C/O LEFT HIP PAIN. GAVE PT PERCOCET PO. PT TOLERATED IT WELL. WILL CONTINUE TO MONITOR.
--- NOTE | 2018-08-24 21:40 | NUR ---
PT C/O PAIN ON THE LEFT HIP AND FEELING ANXIOUS. GAVE PT DILAUDID IVP AND ATIVAN PO. PT TOLERATED IT WELL. WILL CONTINUE TO MONITOR.
--- NOTE | 2018-08-25 02:26 | NUR ---
PT C/O LEFT HIP PAIN. ENCOURAGED PT TO TAKE OTHER PAIN MEDICATION OPTION. PT WANTED DILAUDID IVP. GAVE PT DILUADID IVP. PT TOLERATED IT WELL. WILL CONTINUE TO MONITOR.
[2018-08-25 06:09] LABS: PLATELET COUNT 195 x10^3mcL (130-400); RED CELL DISTRIBUTION WIDTH 13.9 % (11.5-14.5)
[2018-08-25 06:22] LABS: CALCIUM 8.7 mg/dL (8.5-10.1); CARBON DIOXIDE 31.4 mmol/L (21-32); CHLORIDE SERUM 108 mmol/L (98-107); CREATININE SERUM 0.6 mg/dL (0.6-1.0); GFR1 > 60 mL/min; GLUCOSE SERUM 123 mg/dL (74-106); POTASSIUM SERUM 3.9 mmol/L (3.5-5.1); SODIUM SERUM 144 mmol/L (136-145)
[2018-08-25 06:30] VITALS: BP 148/58
--- NOTE | 2018-08-25 06:48 | NUR ---
PT RESTING WITH EYES CLOSED. EASILY AROUSABLE WITH VERBAL STIMULI. NO C/O PAIN THUS FAR. DRESSING ON LEFT LOWER HIP C/D/I. MADE PT COMFORTABLE. WILL ENDORSE TO THE AM NURSE ACCORDINGLY.
[2018-08-25 07:04] LABS: BASOPHIL % 0 % (0-2)
--- NOTE | 2018-08-25 07:05 | NUR ---
RECEIVED PT FROM NIGHT NURSE. PT IS LAYING DOWN IN BED WITH HOB UP AND EYES CLOSED RESTING. PT LOOKS TO BE IN NO ACUTE DISTRESS AT THIS TIME. RESPIRATIONS EVEN AND UNLABORED ON ROOM AIR. IV SITE PATENT WITH NO SIGNS OF ERYTHEMA OR SWELLING WITH IV H/L. BED IN LOWEST POSITION, CALL LIGHT WITHIN REACH. WALKER AT BEDSIDE. WILL CONTINUE TO MONITOR.
[2018-08-25 07:21] VITALS: BP 124/66
--- NOTE | 2018-08-25 11:00 | NUR ---
PT COMPLAINING THAT THE LEFT UPPER LEG LOOKS TO BE MORE SWOLLEN THAN IT WAS THE DAY BEFORE AND THAT IT LOOKS TO BE MORE RED AND WARM. PT IS CONCERNED WITH GOING HOME WHILE THE LEG LOOKS LIKE THIS. PT'S UPPER LEG IS WARM TO THE TOUCH AND LOOKS TO HAVE SOME SLIGHT SWELLING. ERYTHEMA AROUND THE DRESSING SIGHT. PAGED DR. MAN. WAITING TO HEAR BACK.
--- NOTE | 2018-08-25 11:27 | NUR ---
PT SPOKE WITH DR. MAN, STATED IT IS OKAY FOR PT TO GO HOME AND INFORMED THE PT TO CALL IF THE LEG SWELLING PERSISTS OVER TUESDAY, PT VERBALIZED UNDERSTANDING. PT INNER THIGH SWELLING PRESENT, PT DENIES CALF PAIN FOR REDNESS. SWELLING PERSISTS TO KNEE AREA. INFORMED NOT TO CHANGE DRESSING UNTIL PT FOLLOWS UP WITH OUTPATIENT. INFORMED NOT TO TAKE PICTURES SINCE DOES NOT WANT DRESSING REMOVED. PT AGREED TO GO HOME TODAY. FAMILY MEMBER AT BEDSIDE.
[2018-08-25 12:24] VITALS: BP 124/66
--- NOTE | 2018-08-25 13:15 | NUR ---
PT AWAKE, ALERT, ORIENTED AND LOOKS TO BE IN NO ACUTE DISTRESS AT THE TIME OF DISCHARGE. PT DISCHARGED HOME AND WENT TO THE [facility] VIA WHEELCHAIR ACCOMPANIED BY NURSE AND FAMILY MEMBER WITH JAVI IN HAND. EDUCATION PROVIDED TO PATIENT AND FAMILY MEMBER WELL FOLLOW UP APPOINTMENT. PATIENT AND FAMILY MEMBER VERBALZIED UNDERSTANDING OF EDUCATION. INFORMED PT TO [place] SCREED OPERATOR PAIN MEDICATION PRESCRIPTION FROM 'S OFFICE, PATIENT VERBALIZED UNDERSTANDING AND STATES ALREADY PICKED UP THE OTHER 2 PRESCRIPTIONS. INFORMED PT PER DR. MAN'S ORDERED TO NOT REMOVE DRESSING AND THAT WILL CHANGE DRESSING WITH FOLLOW UP APPOINTMENT. PT VERBALIZED UNDERSTANDING. DRESSING CDI AT TIME OF DISCHARGE, SKIN AROUND SITE IS WARM, SLIGHT SWELLING TO INNER THIGH, DR. MAN AWARE. INFORMED PATIENT OF THE SIGNS AND SYMPTOMS TO WATCH FOR AND THE PRECAUTIONS FOR HIP REPLACEMENT. PT VERBALIZED UNDERSTANDING. DISCONTINUED IV, CATHETER FULLY INTACT. ALL QUESTIONS AND CONCERNS ADDRESSED.
== END 2018-08-25 13:28 | disposition home health service (06) | DRG 470 ==
LOC: MU 10:46
PROVIDERS: ADMIT Orthopaedic Surgery
PROC: 0SRB03Z Replacement of Left Hip Joint with Ceramic Synthetic Substitute, Open Approach (ICD-10-PCS; principal; 2018-08-22 07:30)
DX: M16.12 Unilateral primary osteoarthritis, left hip (principal)
CPT/HCPCS: 97110-GP; 97116-GP; 97530-GP; C1713; C1776; G0378; J0690; J1100; J1170; J1885; J2060; J2250; J2270; J2405; J2704; J3010; J3490; J7030; J7120; Q0092

== ENCOUNTER 2018-08-16 15:38 | Emergency (ER) | payer OTHER ==
[~2018-08-16] VITALS: Ht 152.4 cm; Wt 48.5 kg
[2018-08-16 15:39] VITALS: Ht 152.4 cm; Wt 48.5 kg
[2018-08-16 16:34] VITALS: BP 138/79
== END 2018-08-16 16:38 | disposition home or self-care (01) ==
LOC: ED 15:38
DX: M20.032 Swan-neck deformity of left finger(s) (principal); I10 Essential (primary) hypertension; Z88.1 Allergy status to other antibiotic agents; Z88.8 Allergy status to other drugs, medicaments and biological substances; Z98.890 Other specified postprocedural states; Z98.86 Personal history of breast implant removal
CPT/HCPCS: Q0092

== ENCOUNTER 2018-11-08 09:54 | Emergency (ER) | payer OTHER ==
[~2018-11-08] VITALS: Ht 152.4 cm; Wt 49.0 kg
[~2018-11-08 09:54] MED LIST changes: +APAP/OXYCODONE1 TA4 PO; +ATIVAN1 MG PO; +COL100 PO; +ECO81 PO; +TYLENOL WITH CO1 TA3 PO
[2018-11-08 10:01] VITALS: Ht 152.4 cm; Wt 49.0 kg
[2018-11-08 10:44] LABS: BASOPHIL % 0.3 % (0-2)
[2018-11-08 10:48] LABS: PLATELET COUNT 462 x10^3mcL (130-400); RED CELL DISTRIBUTION WIDTH 16.2 % (11.5-14.5)
[2018-11-08 10:55] LABS: CALCIUM 9.4 mg/dL (8.5-10.1); CARBON DIOXIDE 27.6 mmol/L (21-32); CREATININE SERUM 1.2 mg/dL (0.6-1.0); POTASSIUM SERUM 3.5 mmol/L (3.5-5.1)
[2018-11-08 10:59] LABS: BILIRUBIN TOTAL 0.4 mg/dL (0.20-1.00); TOTAL PROTEIN, SERUM 7.8 g/dL (6.4-8.2)
[2018-11-08 11:03] LABS: ALBUMIN 3.3 g/dL (3.4-5.0); CHOLESTEROL/HDL RATIO 3.6
[2018-11-08 11:37] LABS: microscopic required? YES; urine erythrocyte 2+ (NEGATIVE)
[2018-11-08 12:47] VITALS: BP 127/71
== END 2018-11-08 12:47 | disposition home or self-care (01) ==
LOC: ED 09:54
PROVIDERS: Specialist
DX: R10.13 Epigastric pain (principal); R11.10 Vomiting, unspecified; E86.0 Dehydration; F43.0 Acute stress reaction; I10 Essential (primary) hypertension; Z98.890 Other specified postprocedural states; Z88.1 Allergy status to other antibiotic agents
CPT/HCPCS: J1885; J2405; J3490; J7030

== ENCOUNTER → 2019-07-03 | Outpatient (CLI) | payer OTHER ==
[2019-07-03 11:33] LABS: BASOPHIL % 0.3 % (0-2); PLATELET COUNT 302 x10^3mcL (130-400); RED CELL DISTRIBUTION WIDTH 13.7 % (11.5-14.5)
[2019-07-03 11:41] LABS: ALBUMIN 3.6 g/dL (3.4-5.0); BILIRUBIN TOTAL 0.49 mg/dL (0.20-1.00); CALCIUM 9.9 mg/dL (8.5-10.1); CARBON DIOXIDE 30.4 mmol/L (21-32); CREATININE SERUM 1.1 mg/dL (0.6-1.0); POTASSIUM SERUM 3.4 mmol/L (3.5-5.1); TOTAL PROTEIN, SERUM 7.8 g/dL (6.4-8.2); URIC ACID 5.2 mg/dL (2.6-6.0)
[2019-07-03 12:17] LABS: ERYTHROCYTE SED RATE 24 mm/hr (0-30)
== END | disposition home or self-care (01) ==
LOC: LB 10:37
PROVIDERS: Family Medicine
DX: M25.50 Pain in unspecified joint (principal)
CPT/HCPCS: 86431

== ENCOUNTER → 2019-09-07 | Outpatient (CLI) | payer OTHER | END | disposition home or self-care (01) | LOC: RD 14:30 | PROVIDERS: ATTEND Family Medicine | DX: M20.012 Mallet finger of left finger(s) (principal) ==

== ENCOUNTER 2019-11-23 07:24 | Day surgery (SDC) | payer OTHER ==
[~2019-11-23] VITALS: Ht 152.4 cm; Wt 51.7 kg
[2019-11-23 07:32] VITALS: BP 127/86
[2019-11-23 14:42] VITALS: BP 118/75
== END 2019-11-23 12:30 | disposition home or self-care (01) ==
LOC: DS 07:24 → OR 09:00 → DS 12:30
PROVIDERS: ATTEND Internal Medicine Gastroenterology
DX: R10.13 Epigastric pain (principal); K57.30 Diverticulosis of large intestine without perforation or abscess without bleeding; K22.10 Ulcer of esophagus without bleeding; K21.00 Gastro-esophageal reflux disease with esophagitis, without bleeding; K29.50 Unspecified chronic gastritis without bleeding; K57.32 Diverticulitis of large intestine without perforation or abscess without bleeding; K51.90 Ulcerative colitis, unspecified, without complications; Z20.828 Contact with and (suspected) exposure to other viral communicable diseases; Z79.82 Long term (current) use of aspirin
CPT/HCPCS: 43235; 45378; J1200; J1610; J2250; J2310; J3010; J3490; U0003-CS

== ENCOUNTER → 2020-03-26 | Outpatient (CLI) | payer OTHER | END | disposition home or self-care (01) | LOC: RD 09:59 | PROVIDERS: ATTEND Orthopaedic Surgery | DX: M25.552 Pain in left hip (principal); M54.5 Low back pain ==

== ENCOUNTER → 2020-04-10 | Outpatient (CLI) | payer OTHER | END | disposition home or self-care (01) | LOC: LB 10:59 → EDSTATUS 13:43 | DX: Z11.52 Encounter for screening for COVID-19 (principal); I83.893 Varicose veins of bilateral lower extremities with other complications ==